=== PATIENT | male | born 1995 | race Caucasian/White ===

== ENCOUNTER 2016-07-07 18:35 | Emergency (ER) | payer MEDICAID ==
[2016-07-08 14:49] VITALS: BMI 18.5
[2016-07-08] MEDS ORDERED: HYDROCODONE-APA1 TAB PO (17:43)
== END 2016-07-07 20:08 | disposition home or self-care (01) ==
LOC: D.ER 18:35
DX: S52.531A Colles' fracture of right radius, initial encounter for closed fracture (principal); X58.XXXA Exposure to other specified factors, initial encounter; Y93.51 Activity, roller skating (inline) and skateboarding; Y92.830 Public park as the place of occurrence of the external cause

== ENCOUNTER 2016-07-08 10:12 | Day surgery (SDC) | payer MEDICAID ==
[~2016-07-08] VITALS: Ht 185.4 cm; Wt 63.5 kg
--- NOTE | ~2016-07-08 | OP ---
PATIENT NAME: DEBRA TEE MEDICAL RECORD: [id number] :89 LOCATION:D.OPS ADMISSION DATE: SURGEON: DEBRA JO MD DATE OF OPERATION: 07/08/2016 Orthopedic Surgery Operative Note CHIEF COMPLAINT: Distal right wrist fracture. POSTOPERATIVE DIAGNOSIS: Distal right wrist fracture. PROCEDURE: Open reduction and internal fixation of distal fibular fracture. SURGEON: Debra Jo MD. ANESTHESIA: General. INTRAOPERATIVE COMPLICATIONS: None. SUMMARY OF PATHOLOGIC FINDINGS: The patient had a comminuted distal intraarticular radius fracture that required volar plating. OPERATIVE SUMMARY IN DETAIL: After obtaining the appropriate preoperative orthopedic surgery consent as well as anesthetic consultation, evaluation and clearance, he patient was brought to the operating room and placed on the operating table in supine position. After adequate general laryngeal mask was administered, tourniquet was placed about the proximal aspect of the right upper extremity. Right upper extremity was then prepped and draped in a routine sterile fashion. Curvilinear incision was made in keeping with a volar's Ranjit approach, taken down to the level of flexor carpal radialis used as a landmark. Median nerve was identified. A formal carpal tunnel release was performed. Median nerve and ____ was removed and to identify the fracture. The fracture was then held in anatomic synagogue ____ the VariAx plate from [employer], was placed in the appropriate position as seen on AP and lateral planes under fluoroscopy. Serial and sequential drill and fill was utilized for fixation with a combination of both locking and nonlocking screws. This resulted in synagogue of the wrist. Wound was then copiously irrigated and closed with 2-0 Vicryl followed by 4-0 Prolene in running fashion. Sterile dressings were applied. The patient was awakened, taken to recovery room in stable condition. All final needle and sponge counts were correct. TRANSINT:[id number] Voice Confirmation ID: [id number] DOCUMENT ID: [id number] DEBRA JO MD CC: [id number] DICTATION DATE: 07/18/16 0506 MANAGER CHEMISTRY: 07/18/16 1551 [facility] 07/08/16 [id number] [place] [address]
[2016-07-08 14:49] VITALS: BP 140/80; Ht 185.4 cm; Wt 63.5 kg
[2016-07-08] MEDS ORDERED: HYDROCODONE-APA1 TAB PO (17:43)
== END 2016-07-08 20:25 | disposition home or self-care (01) ==
LOC: D.OPS 10:12
DX: S52.501A Unspecified fracture of the lower end of right radius, initial encounter for closed fracture (principal); Z01.812 Encounter for preprocedural laboratory examination; V00.138A Other skateboard accident, initial encounter

== ENCOUNTER → 2018-10-20 13:40 | Outpatient (CLI) | payer MEDICAID ==
[2016-07-08 14:49] VITALS: BMI 18.5
[~2018-10-20 13:40] MED LIST: HYDROCODONE-APA1 TAB PO
== END | disposition home or self-care (01) ==
LOC: D.CT 13:40
PROVIDERS: ATTEND Internal Medicine Cardiovascular Disease
DX: I35.0 Nonrheumatic aortic (valve) stenosis (principal)